=== PATIENT | female | born 1965 | race Caucasian/White ===

== ENCOUNTER 2017-04-27 17:33 | Emergency (ER) | payer OTHER ==
--- NOTE | ~2017-04-27 | EKG ---
PATIENT: PREETHI ROLAND UNIT #: [id number] Ventricular Rate: 128 BPM Atrial Rate: 128 BPM P-R Interval: 128 ms QRS Duration: 78 ms Q-T Interval: 304 ms QTC Calculation(Bezet): 443 ms P Lebo: 5 degrees Calculated R Lebo: -7 degrees Calculated T Lebo: 50 degrees Diagnosis Line: Sinus tachycardia Diagnosis Line: Otherwise normal ECG Diagnosis Line: When compared with ECG of 12-MAR-2010 13:26, Diagnosis Line: Questionable change in QRS axis Diagnosis Line: Confirmed by CARLYLE MILLER MD ([id number]) on Diagnosis Line: 04/29/2017 8:03:53 AM INTERPRETING MD: ANGELA SHAW
--- NOTE | ~2017-04-27 | CR72 ---
[facility]. [facility] A Service of [facility] & [facility] RADIOLOGY TEXT RESULTS PATIENT: PREETHI ROLAND LOCATION: SED : [birth year] UNIT #: [id number] AGE: [address]: Marlon Espinal MD SEX: F ORDER DR: [id number] [address] [address] [id number] E MR#: [id number] Acc #: [id number] NAME: PREETHI ROLAND : 1965 SEX: F STUDY DATE/TIME: 04/27/2017 18:56 UNIT: SED ROOM: STUDY DESCRIPTION: CR Chest Single View Portable Attending Physician: Marlon Espinal M.D. Ordering Physician: Siddharth Zepeda M.D. Primary Care Physician: Dudley Jimenez M.D. MEDICAL IMAGING REPORT This report is preliminary unless electronic signature is present. EXAM Portable chest, 04/27/2017 HISTORY Shortness of breath and chest pain and abdominal pain beginning this morning. Smoking history for 20 years. FINDINGS A single AP portable view of the chest shows both lungs to be clear. The heart is normal in size. The mediastinal contour is normal. No significant bone abnormalities are seen. IMPRESSION Normal portable chest. Dictated by... Minesh Hassan M.D. THIS IS AN ELECTRONICALLY VERIFIED REPORT Minesh Hassan M.D. at 04/28/2017 2:13 PM IRENE/jacquelyn TD: 04/28/2017 00:12 JOB #: [id number] MEDICAL IMAGING REPORT Page 1 of 1
--- NOTE | ~2017-04-27 | CT16 ---
[facility] A Service of [facility] & [facility] RADIOLOGY TEXT RESULTS PATIENT: PREETHI ROLAND LOCATION: SED : [birth year] UNIT #: [id number] AGE: [address]: Marlon Espinal MD SEX: F ORDER DR: [id number] [address] [address] [id number] E MR#: [id number] Acc #: [id number] NAME: PREETHI ROLAND : 1965 SEX: F STUDY DATE/TIME: 04/27/2017 19:32 UNIT: SED ROOM: STUDY DESCRIPTION: CT Angio Chest for PE Attending Physician: Marlon Espinal M.D. Ordering Physician: Siddharth Zepeda M.D. Primary Care Physician: Dudley Jimenez M.D. MEDICAL IMAGING REPORT This report is preliminary unless electronic signature is present. EXAM CT scan of the chest with intravenous contrast, 04/27/2017 HISTORY Chest pain and shortness of breath and epigastric abdominal pain beginning today, evaluate for pulmonary embolus. Tachycardia. TECHNIQUE Spiral CT was performed through the chest following intravenous contrast administration using pulmonary embolus protocol. 3-D reconstructions of the chest were then performed following intravenous contrast administration. This CT exam was performed with one or more of the following radiation dose reduction techniques: Automatic exposure control, adjustment of mA and/or kV according to patient size, and iterative reconstruction. FINDINGS There is no CT evidence for pulmonary embolus. The heart is normal in size. There is no significant thoracic adenopathy. There are no pleural effusions. There is diffuse centrilobular emphysema. Images of the upper abdomen demonstrate cholelithiasis. There is thickening and enhancement of the gallbladder wall with some stranding in the fat adjacent to the gallbladder, concerning for cholecystitis. Correlation with gallbladder ultrasound is recommended. IMPRESSION 1. No CT evidence for pulmonary embolus. 2. Emphysema 3. Cholelithiasis. There is diffuse thickening and enhancement of the gallbladder wall with subtle stranding in the fat adjacent to the gallbladder. Findings are concerning for possible cholecystitis. Clinical correlation is recommended. Recommend correlation with gallbladder ultrasound. STS. [facility] A Service of [facility] & [facility] RADIOLOGY TEXT RESULTS PATIENT: PREETHI ROLAND LOCATION: [facility] [place] : [birth year] UNIT #: [id number] AGE: [address]: Marlon Espinal MD SEX: F ORDER DR: 4. 1 cm cyst left hepatic lobe is incidentally noted. Dictated by... Minesh Hassan M.D. THIS IS AN ELECTRONICALLY VERIFIED REPORT Minesh Hassan M.D. at 04/28/2017 2:14 PM KRT/psc TD: 04/28/2017 00:41 JOB #: [id number] MEDICAL IMAGING REPORT Page 1 of 1
[~2017-04-27 17:33] MED LIST: ATIVAN PO; AUGMENTIN PO; BUSPAR PO; CYMBALTA PO; ERYTHROMYCIN B500 MG PO; LORTAB 7.51 TAB 7.5/ PO; OXAZEPAM15 MG PO; PEN-VEE K PO; PROPRANOLOL PO; RANITIDINE HCL150 M1 PO; STAHIST TA1 TAB.SR . PO; TRAZODONE PO; ZYRTEC PO
[2017-04-27] MEDS ORDERED: PRILOSEC PO (17:56)
[2017-04-27 18:24] LABS: BASOPHIL# 0.2 X10e3 (0-0.3); BASOPHIL% 1.4 % (0-2.5); EOSINOPHIL# 0.2 X10e3 (0-0.7); EOSINOPHIL% 1.4 % (0.0-7.0); HEMATOCRIT 48.8 % (35.0-45.0); HEMOGLOBIN 16.7 gm/dL (12.0-16.0); LYMPHOCYTE# 3.8 X10e3 (1.0-3.5); LYMPHOCYTE% 35.1 % (17.0-45.0); MEAN CELL VOLUME 84.6 FL (83-96); MEAN CORPUSCULAR HEMOGLOBIN 28.9 PG (28-34); MEAN CORPUSCULAR HGB CONC 34.2 g/dL (30-36); MEAN PLATELET VOLUME 8.7 FL (6.5-11.5); MONOCYTE# 0.7 X10e3 (0-1.0); MONOCYTE% 6.5 % (3.0-12.0); NEUTROPHIL# 6.1 X10e3 (1.5-7.1); NEUTROPHIL% 55.6 % (40-75); PLATELET COUNT 246 X10e3 (140-420); RED BLOOD COUNT 5.77 X10e (3.90-5.30); WHITE BLOOD COUNT 10.9 X10e3 (4.0-10.5)
[2017-04-27 18:25] LABS: DIFF IND NO
[2017-04-27 18:34] LABS: INR 1.1; PROTHROMBIN TIME (PATIENT) 12.5 SECONDS (9.5-12.4)
[2017-04-27 18:40] LABS: POC - CKMB <1.0 ng/mL (0.0-7.9); POC - MYOGLOBIN 61.5 ng/mL (0.0-169.0); POC - TROPONIN <0.05 ng/mL (<=0.05)
[2017-04-27 18:41] LABS: PARTIAL THROMBOPLASTIN TIME 26.5 SECONDS (25.6-38.1)
[2017-04-27 18:43] LABS: ALBUMIN SERUM 4.5 g/dL (3.5-5.0); BILIRUBIN, DIRECT 0.1 mg/dL (0.0-0.2); BILIRUBIN,INDIRECT 0.4 mg/dL (0.0-0.9); BILIRUBIN,TOTAL 0.5 mg/dL (0.2-2.0); CALCIUM SERUM 9.4 mg/dL (8.4-10.2); CREATININE SERUM 0.8 mg/dL (0.6-1.4); GLOM FILT RATE Estimated 86.6 mL/min (>60); MAGNESIUM 1.9 mg/dL (1.6-3.0); POTASSIUM 3.5 mmol/L (3.5-5.1); PROTEIN TOTAL SERUM 7.6 g/dL (6.0-8.3)
[2017-04-27 19:45] LABS: URINE SOURCE CLEAN CATCH
[2017-04-27 19:48] LABS: URINE APPEARANCE CLEAR; URINE BILIRUBIN NEG (NEG); URINE BLOOD 1+ (NEG); URINE COLOR YELLOW; URINE GLUCOSE NEG (NORM); URINE KETONE NEG (NEG); URINE LEUKOCYTE ESTERASE NEG (NEG); URINE NITRATE NEG (NEG); URINE PROTEIN NEG (NEG); URINE SPECIFIC GRAVITY <=1.005 (1.003-1.035); URINE UROBILINOGEN 0.2 MG/DL (NORM)
[2017-04-27 19:50] LABS: CULTURE INDICATED? NO; MICRO INDICATED? YES; URINE BACTERIA NEG (NEG); URINE SQUAMOUS EPITHELIAL CELL OCCAS /[HPF]; URINE WBC 0-2 /[HPF] (0-5)
[2017-04-27 19:58] LABS: AMPHETAMINE NEG (NEG); BARBITURATES NEG (NEG); BENZODIAZEPINES NEG (NEG); COCAINE NEG (NEG); MARIJUANA POS (NEG); OPIATES NEG (NEG); TRICYCLIC ANTIDEPRESSANTS NEG (NEG); U METHADONE NEG (NEG)
[2017-04-27 20:16] LABS: POC - CKMB <1.0 ng/mL (0.0-7.9)
[2017-04-27 20:17] LABS: POC - MYOGLOBIN 56.7 ng/mL (0.0-169.0); POC - TROPONIN <0.05 ng/mL (<=0.05)
[2017-05-10] MEDS ORDERED: BUSPIRONE HCL10 MG PO (09:29)
[2017-05-10] MEDS ORDERED: ZOFRAN ODT4 M1 SL (09:29)
[2017-05-10] MEDS ORDERED: IBUPROFEN100 MG PO (09:30)
[2017-05-10] MEDS ORDERED: SUDAFED PO (09:31)
[2017-05-10] MEDS ORDERED: MUCINEX D ER T1 EAC1 PO (09:31)
[2017-05-10] MEDS ORDERED: DEPO IM (09:32)
== END 2017-04-27 21:17 | disposition home or self-care (01) ==
LOC: SED 17:33
PROVIDERS: Emergency Medicine
DX: K80.50 Calculus of bile duct without cholangitis or cholecystitis without obstruction (principal); I10 Essential (primary) hypertension; J44.9 Chronic obstructive pulmonary disease, unspecified; F41.9 Anxiety disorder, unspecified; Z87.891 Personal history of nicotine dependence
CPT/HCPCS: 36415; 71010; 71275; 80048; 80076; 80307; 81003; 82553; 83690; 83735; 83874; 83880; 84484; 85025; 85379; 85610; 85730; 93005; 96361; 96374; 96375; 99285; C9113; J2060; Q9967

== ENCOUNTER → 2017-05-05 | Outpatient (CLI) | payer OTHER ==
[~2017-05-05] MED LIST changes: +BUSPIRONE HCL10 MG PO; +DEPO IM; +IBUPROFEN100 MG PO; +MUCINEX D ER T1 EAC1 PO; +PRILOSEC PO; +SUDAFED PO; +ZOFRAN ODT4 M1 SL
--- NOTE | ~2017-05-05 | US6 ---
[facility] A Service of [facility] RADIOLOGY TEXT RESULTS PATIENT: PREETHI ROLAND LOCATION: [facility] : [birth year] UNIT #: [id number] AGE: [address]: Walker Eric MD SEX: F ORDER DR: [id number] [facility] [address] [place], [place] [address] [id number] O MR#: [id number] Acc #: [id number] NAME: PREETHI ROLAND : 1965 SEX: F STUDY DATE/TIME: 05/05/2017 10:50 UNIT: [facility] ROOM: STUDY DESCRIPTION: US Abdominal Limited Attending Physician: Walker Eric M.D. Referring Physician: Walker Eric M.D. Ordering Physician: Walker Eric M.D. Primary Care Physician: Dudley Jimenez M.D. MEDICAL IMAGING REPORT This report is preliminary unless electronic signature is present EXAM Right upper quadrant abdominal ultrasound. DATE 05/05/2017 HISTORY Gallbladder wall thickening on prior CT chest. Right upper quadrant pain for 3 weeks with abdominal pressure after eating. COMPARISON CT chest PE protocol, 04/27/2017. FINDINGS The pancreas is largely obscured by bowel gas. A cyst in the left hepatic lobe measures 1 cm. Right kidney measures 10.3 cm in length without hydronephrosis. A cyst in the right kidney measures 3.7 cm. Portal vein is patent. The gallbladder is contracted around multiple shadowing gallstones. The gallbladder wall is thickened up to 6 mm. No definite pericholecystic fluid is seen. Common bile duct caliber is at upper limits of normal, 6 mm. No intrahepatic biliary ductal dilation is seen. Intrahepatic IVC demonstrates color flow. IMPRESSION 1. Gallbladder is contracted and filled with multiple shadowing stones. The gallbladder wall is abnormally thickened. The findings may represent changes of acute or chronic cholecystitis. 2. Common bile duct caliber is just at upper limits normal and no biliary dilation is seen. No choledocholithiasis is evident. 3. Hepatic cysts. 4. Right renal cyst. [facility] A Service of [facility] RADIOLOGY TEXT RESULTS PATIENT: PREETHI ROLAND LOCATION: [facility] : [birth year] UNIT #: [id number] AGE: [address]: Walker Eric MD SEX: F ORDER DR: Dictated by... Lorraine Gilmore M.D. THIS IS AN ELECTRONICALLY VERIFIED REPORT Lorraine Gilmore M.D. at 05/06/2017 8:54 AM АННА/holli TD: 05/05/2017 22:17 JOB #: [id number] MEDICAL IMAGING REPORT Page 1 of 1 COPY
== END | disposition home or self-care (01) ==
LOC: CGUS 10:11
DX: R10.11 Right upper quadrant pain (principal); K80.20 Calculus of gallbladder without cholecystitis without obstruction; K76.89 Other specified diseases of liver; N28.1 Cyst of kidney, acquired; K82.8 Other specified diseases of gallbladder
CPT/HCPCS: 76705

== ENCOUNTER → 2017-05-10 | Outpatient (CLI) | payer OTHER ==
[2017-05-10 09:41] LABS: HEMATOCRIT 47.6 % (35.0-45.0); HEMOGLOBIN 15.9 gm/dL (12.0-16.0); MEAN CELL VOLUME 85.7 FL (83-96); MEAN CORPUSCULAR HEMOGLOBIN 28.6 PG (28-34); MEAN CORPUSCULAR HGB CONC 33.4 g/dL (30-36); RED BLOOD COUNT 5.56 X10e (3.90-5.30); RED CELL DISTRIBUTION WIDTH 14.1 % (11.0-15.5); WHITE BLOOD COUNT 9.3 X10e3 (4.0-10.5)
[2017-05-10 10:19] LABS: ALBUMIN SERUM 4.1 g/dL (3.5-5.0); BUN/CREATININE RATIO 8.75; CALCIUM SERUM 9.8 mg/dL (8.4-10.2); CREATININE SERUM 0.8 mg/dL (0.6-1.4); GLOM FILT RATE Estimated 86.6 mL/min (>60); POTASSIUM 4.4 mmol/L (3.5-5.1); PROTEIN TOTAL SERUM 6.8 g/dL (6.0-8.3)
== END | disposition home or self-care (01) ==
LOC: CAMB 08:00
PROVIDERS: Specialist
DX: Z01.812 Encounter for preprocedural laboratory examination (principal)
CPT/HCPCS: 36415; 80053; 85027

== ENCOUNTER → 2017-05-17 | Day surgery (SDC) | payer OTHER ==
--- NOTE | ~2017-05-17 | OR ---
Unit #: [id number] #: [id number] Patient: PREETHI ABRAHAM [id number] [address] [place], [place] [address] [id number] O MR#: [id number] NAME: PREETHI ABRAHAM ROOM: Date of Procedure: 05/17/2017 Admission Date: 05/17/2017 Surgeon: Walker Eric M.D. : 1965 Attending Physician: Walker Eric M.D. Primary Care Physician: Dudley Jimenez M.D. OPERATIVE REPORT PREOPERATIVE DIAGNOSES Chronic cholecystitis and cholelithiasis. POSTOPERATIVE DIAGNOSIS Chronic cholecystitis and cholelithiasis. PROCEDURE PERFORMED Laparoscopic cholecystectomy. ANESTHESIA General endotracheal anesthesia. ESTIMATED BLOOD LOSS Less than 10 mL. INDICATIONS FOR PROCEDURE Ms. Abraham is a 51-year-old female, who has had right upper quadrant pain and nausea. Radiologic evaluation revealed cholelithiasis with normal biliary ductal system. Preoperative liver chemistries were normal. DESCRIPTION OF PROCEDURE The patient was admitted to [facility], positively identified, and transported to the operating room, and after induction of general endotracheal anesthesia, she was prepped and draped in usual sterile fashion. She received IV antibiotics per SCIP protocol and SCDs were placed. A 5-mm supraumbilical incision was made. Veress needle was placed. Pneumoperitoneum was created. Then, a 5-mm trocar was placed. Laparoscope was introduced into peritoneal cavity and under direct vision, the epigastric and lateral ports were placed. Gallbladder was grasped and elevated. Adhesions were stripped away and the infundibulum was identified and retracted laterally. [place] was dissected out clearly identifying the cystic duct, gallbladder, and cystic duct-common duct junction. The cystic duct was swept upwards toward the gallbladder and then a single clip was placed in the cystic duct as it entered the gallbladder. Three clips were placed distally and the cystic duct was divided posteriorly. The cystic artery was doubly clipped proximally and distally and divided. I then dissected the gallbladder liver bed using cautery dissection. Once it was freed up from its hepatic attachments, it was brought out through the epigastric port. There was good hemostasis. The clips were well positioned. The epigastric fascial defect was closed with the neoClose device and the closure was airtight. I then reduced the pneumoperitoneum as I removed laparoscope and trocars. 0.5% Marcaine with Unit #: [id number] #: [id number] Patient: PREETHI ABRAHAM epinephrine was infiltrated into each trocar site. The skin was closed with 4-0 Monocryl subcuticular closure and Dermabond skin adhesive. Sponges and needle counts were correct x3. The patient tolerated the procedure well and transported to recovery in stable condition. Findings and postoperative instructions were discussed with her . Dictated by... Vivian Galloway/dallin TD: 05/17/2017 15:01 JOB #: [id number] OPERATIVE REPORT Page 1 of 1 X Walker Eric MD X PROCEDURE OPERATIVE NOTE
== END | disposition home or self-care (01) ==
LOC: CSUR 07:12
DX: K80.10 Calculus of gallbladder with chronic cholecystitis without obstruction (principal); K21.9 Gastro-esophageal reflux disease without esophagitis; E78.5 Hyperlipidemia, unspecified; J44.9 Chronic obstructive pulmonary disease, unspecified; E55.9 Vitamin D deficiency, unspecified; D51.0 Vitamin B12 deficiency anemia due to intrinsic factor deficiency; F17.210 Nicotine dependence, cigarettes, uncomplicated; Z79.899 Other long term (current) drug therapy; Z98.890 Other specified postprocedural states
CPT/HCPCS: 84703; 88304; J0330; J0690; J1100; J1885; J2250; J2405; J2710; J3010